=== PATIENT | female | born 1995 | race African-American/Black ===

== ENCOUNTER 2016-12-27 18:13 | Emergency (ER) | payer OTHER ==
--- NOTE | ~2016-12-27 | US134 ---
[facility] A Service of [facility] / [facility] RADIOLOGY TEXT RESULTS PATIENT: ALEX ALEGRIA LOCATION: [facility] : 95 UNIT #: [id number] AGE: [address]: Rickey Green MD SEX: F ORDER DR: [id number] [facility] [address] [place], [place] [address] [id number] E MR#: [id number] Acc #: [id number] NAME: ALEX ALEGRIA : 1995 SEX: F STUDY DATE/TIME: 12/27/2016 18:59 UNIT: [facility] ROOM: STUDY DESCRIPTION: US Transvaginal Attending Physician: Rickey Green M.D. Ordering Physician: Rickey Green M.D. Primary Care Physician: No Primary Care Physician MEDICAL IMAGING REPORT This report is preliminary unless electronic signature is present EXAM Pelvic ultrasound, endovaginal study. DATE OF EXAM 12/27/2016 HISTORY Pelvic pain for 2 days. D&C 1 month ago. FINDINGS Endovaginal ultrasound examination pelvis demonstrates no uterine mass or enlargement. No endometrial thickening or endometrial fluid within the uterus. There may be a small amount of echogenic debris along the endocervical canal. Small follicular cysts in both ovaries and a 2 cm hemorrhagic or proteinaceous cyst in the right ovary. Blood flow is noted in both ovaries on color Doppler. Minimal free fluid in the pelvis. IMPRESSION 1. No uterine mass or enlargement. 2. Blood flow is noted in both ovaries on color Doppler. 3. No endometrial thickening or fluid within the uterus. 4. There may be a small amount of echogenic material along the endocervical canal which could be blood products. 5. Follicular cysts in both ovaries and a 2 cm hemorrhagic or proteinaceous cyst in the right ovary with normal blood flow to both ovaries on Doppler. 6. Minimal free fluid in the pelvis is likely incidental. Dictated by... Will Sotomayor M.D. [facility] A Service of [facility] / [facility] RADIOLOGY TEXT RESULTS PATIENT: ALEX ALEGRIA LOCATION: [facility] : 95 UNIT #: [id number] AGE: [address]: Rickey Green MD SEX: F ORDER DR: THIS IS AN ELECTRONICALLY VERIFIED REPORT Will Sotomayor M.D. at 12/27/2016 11:27 PM MAXIMINO/gin TD: 12/27/2016 23:15 JOB #: [id number] MEDICAL IMAGING REPORT Page 1 of 1 COPY
[2016-12-27 18:55] LABS: BASOPHIL% 0.3 % (0-2.5); EOSINOPHIL% 0.1 % (0.0-7.0); HEMATOCRIT 41.3 % (35.0-45.0); HEMOGLOBIN 13.5 gm/dL (12.0-16.0); LYMPHOCYTE# 0.8 X10e3 (1.0-3.5); LYMPHOCYTE% 30.3 % (17.0-45.0); MEAN CELL VOLUME 86.6 FL (83-96); MEAN CORPUSCULAR HEMOGLOBIN 28.2 PG (28-34); MEAN CORPUSCULAR HGB CONC 32.6 g/dL (30-36); MEAN PLATELET VOLUME 8.2 FL (6.5-11.5); MONOCYTE# 0.2 X10e3 (0-1.0); MONOCYTE% 7.2 % (3.0-12.0); NEUTROPHIL# 1.6 X10e3 (1.5-7.1); NEUTROPHIL% 62.1 % (40-75); PLATELET COUNT 181 X10e3 (140-420); RED BLOOD COUNT 4.78 X10e (3.90-5.30); WHITE BLOOD COUNT 2.6 X10e3 (4.0-10.5)
[2016-12-27 19:04] LABS: DIFF IND YES
[2016-12-27 19:12] LABS: ALBUMIN SERUM 4.4 g/dL (3.5-5.0); BILIRUBIN, DIRECT 0.1 mg/dL (0.0-0.2); BILIRUBIN,INDIRECT 0.5 mg/dL (0.0-0.9); BILIRUBIN,TOTAL 0.6 mg/dL (0.2-2.0); BUN/CREATININE RATIO 11.25; CALCIUM SERUM 8.5 mg/dL (8.4-10.2); CREATININE SERUM 0.8 mg/dL (0.6-1.4); GLOM FILT RATE Estimated 122.3 mL/min (>60); PROTEIN TOTAL SERUM 7.7 g/dL (6.0-8.3)
[2016-12-27 19:46] LABS: ANISOCYTOSIS SL; PLATELET ESTIMATE NORMAL (NORMAL); POIKILOCYTOSIS SL
[2016-12-27 20:34] LABS: URINE SOURCE CLEAN CATCH
[2016-12-27 20:40] LABS: URINE APPEARANCE CLEAR; URINE BILIRUBIN NEG (NEG); URINE BLOOD NEG (NEG); URINE COLOR YELLOW; URINE GLUCOSE NEG (NEG); URINE KETONE 3+ (NEG); URINE LEUKOCYTE ESTERASE NEG (NEG); URINE NITRATE NEG (NEG); URINE PH 6.5 (5-8); URINE PROTEIN NEG (NEG); URINE SPECIFIC GRAVITY 1.018 (1.003-1.035)
[2016-12-27 20:47] LABS: CULTURE INDICATED? NO
== END 2016-12-27 21:45 | disposition home or self-care (01) ==
LOC: CED 18:13
PROVIDERS: Emergency Medicine
DX: N83.02 Follicular cyst of left ovary (principal); N83.01 Follicular cyst of right ovary
CPT/HCPCS: 36415; 76830; 80048; 80076; 81003; 83690; 84702; 84703; 85025; 85610; 86850; 86900; 86901; 96374; 99284; J2405

== ENCOUNTER 2017-02-23 17:52 | Emergency (ER) | payer OTHER ==
[2017-02-23 19:12] LABS: URINE SOURCE CLEAN CATCH
[2017-02-23 19:18] LABS: URINE APPEARANCE CLEAR; URINE BILIRUBIN NEG (NEG); URINE BLOOD 3+ (NEG); URINE COLOR YELLOW; URINE GLUCOSE NEG (NEG); URINE KETONE NEG (NEG); URINE LEUKOCYTE ESTERASE TRACE (NEG); URINE NITRATE NEG (NEG); URINE PH 5.5 (5-8); URINE PROTEIN NEG (NEG); URINE SPECIFIC GRAVITY 1.023 (1.003-1.035); URINE UROBILINOGEN 0.2 MG/DL (NEG)
[2017-02-23 19:22] LABS: CULTURE INDICATED? YES; U HYALINE CASTS AUWI 0-2 /[LPF]; URBCS1 AUWI 50-100 /[HPF] (0-2); URINE BACTERIA AUWI 1+ (NEGATIVE); URINE SQUAMOUS EPITHELIAL CELL FEW /[HPF]
[2017-02-26 02:38] LABS: CHLAMYDIA TRACH Not Detected (Not Detected); N GONOR Not Detected (Not Detected)
== END 2017-02-23 20:28 | disposition home or self-care (01) ==
LOC: CFTX 17:52 → CED 17:52 → CFTX 18:47
PROVIDERS: Physician Assistant
DX: N30.91 Cystitis, unspecified with hematuria (principal); A59.01 Trichomonal vulvovaginitis
CPT/HCPCS: 81003; 84703; 87086; 87220; 87491; 87591; 87808; 87905; 99283

== ENCOUNTER 2017-03-25 11:40 | Emergency (ER) | payer OTHER ==
--- NOTE | ~2017-03-25 | CR72 ---
[facility] A Service of [facility] RADIOLOGY TEXT RESULTS PATIENT: ALEX ALEGRIA LOCATION: [facility] : 95 UNIT #: [id number] AGE: [address]: Roz Torres SEX: F ORDER DR: [id number] [facility] [address] [place], [place] [address] [id number] E MR#: [id number] Acc #: [id number] NAME: ALEX ALEGRIA : 1995 SEX: F STUDY DATE/TIME: 03/25/2017 UNIT: [facility] ROOM: STUDY DESCRIPTION: CR Chest Single View Portable Attending Physician: Roz Torres Pa-C Ordering Physician: Ed Willis Mccord M.D. Primary Care Physician: No Primary Care Physician MEDICAL IMAGING REPORT This report is preliminary unless electronic signature is present EXAM Chest portable, 03/25/2017, 1252 hours. HISTORY 21-year-old complaining of pain and swelling in the left breast since yesterday. COMPARISON None FINDINGS Portable upright chest demonstrates normal cardiac, mediastinal and hilar contours. The lungs are well expanded and clear. There is no pleural effusion or pneumothorax. No bone lesions seen. IMPRESSION Normal portable chest film. Dictated by... Fransisca Suárez M.D. THIS IS AN ELECTRONICALLY VERIFIED REPORT Fransisca Suárez M.D. at 03/25/2017 8:32 PM Ninfa TD: 03/25/2017 17:14 JOB #: [id number] MEDICAL IMAGING REPORT Page 1 of 1 COPY
--- NOTE | ~2017-03-25 | EKG ---
PATIENT: ALEX ALEGRIA UNIT #: [id number] Ventricular Rate: 59 BPM Atrial Rate: 59 BPM P-R Interval: 170 ms QRS Duration: 86 ms Q-T Interval: 394 ms QTC Calculation(Bezet): 390 ms P Wrights: 58 degrees Calculated R Wrights: -35 degrees Calculated T Wrights: 41 degrees Diagnosis Line: Sinus bradycardia Diagnosis Line: Left axis deviation Diagnosis Line: Abnormal ECG Diagnosis Line: No previous ECGs available Diagnosis Line: Confirmed by GREG VOSS MD ([id number]) on Diagnosis Line: 03/27/2017 7:55:48 AM INTERPRETING MD: BIPIN SMITH
[2017-03-25 12:53] LABS: POC - CKMB <1.0 ng/mL (0.0-7.9); POC - TROPONIN <0.05 ng/mL (<=0.05)
[2017-03-25 12:54] LABS: BASOPHIL% 0.8 % (0-2.5); EOSINOPHIL# 0.1 X10e3 (0-0.7); EOSINOPHIL% 1.2 % (0.0-7.0); HEMATOCRIT 33.5 % (35.0-45.0); HEMOGLOBIN 10.9 gm/dL (12.0-16.0); LYMPHOCYTE# 1.8 X10e3 (1.0-3.5); LYMPHOCYTE% 41.2 % (17.0-45.0); MEAN CELL VOLUME 84.2 FL (83-96); MEAN CORPUSCULAR HEMOGLOBIN 27.5 PG (28-34); MEAN CORPUSCULAR HGB CONC 32.7 g/dL (30-36); MEAN PLATELET VOLUME 7.8 FL (6.5-11.5); MONOCYTE# 0.3 X10e3 (0-1.0); MONOCYTE% 7.3 % (3.0-12.0); NEUTROPHIL# 2.1 X10e3 (1.5-7.1); NEUTROPHIL% 49.5 % (40-75); PLATELET COUNT 257 X10e3 (140-420); RED BLOOD COUNT 3.98 X10e (3.90-5.30); RED CELL DISTRIBUTION WIDTH 14.5 % (11.0-15.5); WHITE BLOOD COUNT 4.3 X10e3 (4.0-10.5)
[2017-03-25 12:55] LABS: DIFF IND NO
[2017-03-25 13:16] LABS: ALBUMIN SERUM 3.8 g/dL (3.5-5.0); ALKALINE PHOSPHATASE 66 U/L (32-92); ALT (SGPT) 14 U/L (10-40); AST (SGOT) 16 U/L (10-42); BILIRUBIN,TOTAL 0.3 mg/dL (0.2-2.0); BLOOD UREA NITROGEN 6 mg/dL (9-23); CALCIUM SERUM 8.6 mg/dL (8.4-10.2); CARBON DIOXIDE 26 mmol/L (22-31); CHLORIDE 108 mmol/L (100-111); CREATININE SERUM 0.8 mg/dL (0.6-1.4); GLOM FILT RATE Estimated 122.3 mL/min (>60); GLUCOSE FASTING 92 mg/dL (70-110); POTASSIUM 3.7 mmol/L (3.5-5.1); PROTEIN TOTAL SERUM 6.8 g/dL (6.0-8.3); SODIUM 139 mmol/L (135-145)
[2017-03-25 13:17] LABS: BILIRUBIN, DIRECT <0.1 mg/dL (0.0-0.2); BILIRUBIN,INDIRECT 0.2 mg/dL (0.0-0.9)
== END 2017-03-25 13:50 | disposition home or self-care (01) ==
LOC: CFTX 11:40 → CED 11:40 → CFTX 12:00
PROVIDERS: Physician Assistant
DX: R07.89 Other chest pain (principal)
CPT/HCPCS: 36415; 71010; 80048; 80076; 82553; 84484; 84703; 85025; 85379; 93005; 99285

== ENCOUNTER 2017-04-07 15:27 | Emergency (ER) | payer OTHER ==
[~2017-04-07] VITALS: Ht 175.3 cm; Wt 64.9 kg
== END 2017-04-07 16:00 | disposition left against medical advice (07) ==
LOC: CED 15:27
DX: Z53.21 Procedure and treatment not carried out due to patient leaving prior to being seen by health care provider (principal)

== ENCOUNTER 2017-05-21 19:44 | Emergency (ER) | payer OTHER ==
[~2017-05-21] VITALS: Ht 167.6 cm; Wt 65.3 kg
--- NOTE | ~2017-05-21 | CT4 ---
[facility] A Service of [facility] RADIOLOGY TEXT RESULTS PATIENT: ALEX ALEGRIA LOCATION: [facility] : 95 UNIT #: [id number] AGE: [address]: PHOENIX BORREGO APRN SEX: F ORDER DR: [id number] [address] [facility] [place], [place] [address] [id number] E MR#: [id number] Acc #: [id number] NAME: ALEX ALEGRIA : 1995 SEX: F STUDY DATE/TIME: 05/22/2017 0:07 UNIT: [facility] ROOM: STUDY DESCRIPTION: CT Abd and Pelv Wo Cont Attending Physician: Phoenix Borrego Aprn Ordering Physician: Phoenix Borrego Aprn Primary Care Physician: Aditya Hall M.D. MEDICAL IMAGING REPORT This report is preliminary unless electronic signature is present EXAM CT abdomen and pelvis without contrast HISTORY Left flank pain for [address] examination was performed with one or more of the following radiation dose reduction techniques: automatic exposure control, adjustment of mA and/or kV according to patient size, and iterative reconstruction. CT abdomen and pelvis was performed without contrast. CT ABDOMEN: The liver, gallbladder, spleen, pancreas, kidneys, and adrenal glands are unremarkable. No renal calculi. No hydronephrosis. No bowel dilatation. Normal caliber abdominal aorta. CT PELVIS: No free fluid. The uterus and adnexa are unremarkable. Normal appendix. Urinary bladder is normal. IMPRESSION 1. Negative noncontrast CT abdomen and pelvis. 2. No urinary calculi or obstruction. 3. Normal appendix. Dictated by... Will Sotomayor M.D. THIS IS AN ELECTRONICALLY VERIFIED REPORT Will Sotomayor M.D. at 05/22/2017 3:51 PM [facility] A Service of [facility] RADIOLOGY TEXT RESULTS PATIENT: ALEX ALEGRIA LOCATION: [facility] : 95 UNIT #: [id number] AGE: [address]: PHOENIX BORREGO APRN SEX: F ORDER DR: Al TD: 05/22/2017 06:26 JOB #: [id number] MEDICAL IMAGING REPORT Page 1 of 1 COPY
[2017-05-21 22:13] LABS: URINE SOURCE CLEAN CATCH
[2017-05-21 22:19] LABS: URINE APPEARANCE CLOUDY; URINE BILIRUBIN NEG (NEG); URINE BLOOD 3+ (NEG); URINE COLOR YELLOW; URINE GLUCOSE NEG (NEG); URINE KETONE TRACE (NEG); URINE LEUKOCYTE ESTERASE 1+ (NEG); URINE NITRATE NEG (NEG); URINE PH 5.5 (5-8); URINE PROTEIN NEG (NEG); URINE SPECIFIC GRAVITY 1.026 (1.003-1.035)
[2017-05-21 22:21] LABS: CULTURE INDICATED? YES; URINE BACTERIA AUWI NEG (NEGATIVE); URINE SQUAMOUS EPITHELIAL CELL FEW /[HPF]
[2017-05-21 23:44] LABS: BUN/CREATININE RATIO 11.25; CALCIUM SERUM 8.4 mg/dL (8.4-10.2); CREATININE SERUM 0.8 mg/dL (0.6-1.4); GLOM FILT RATE Estimated 121.4 mL/min (>60); POTASSIUM 3.5 mmol/L (3.5-5.1)
[2017-05-25 13:54] LABS: CHLAMYDIA TRACH Not Detected (Not Detected); N GONOR Not Detected (Not Detected)
== END 2017-05-22 01:58 | disposition home or self-care (01) ==
LOC: CFTX 19:44 → CED 19:44 → CFTX 23:00
PROVIDERS: Nurse Practitioner Family
DX: N93.9 Abnormal uterine and vaginal bleeding, unspecified (principal); K59.00 Constipation, unspecified; R30.0 Dysuria
CPT/HCPCS: 36415; 74176; 80048; 81003; 84703; 87086; 87491; 87591; 87808; 87905; 99284